=== PATIENT | male | born 1950 | race Caucasian/White ===

== ENCOUNTER 2017-04-20 19:53 | Emergency (ER) | payer OTHER ==
[~2017-04-20] VITALS: Ht 177.8 cm; Wt 72.0 kg
[~2017-04-20 19:53] MED LIST: ALLO100T PO; ASPI-664 PO; ATOR80TA75 PO; CARV6.2579 PO; CHOL400C PO; CLON-339 PO; CLOP75TA27 PO; ISOS60TA PO
[2017-04-20 19:57] VITALS: Ht 177.8 cm; Wt 72.0 kg
--- NOTE | 2017-04-20 21:56 | ERA ---
ER Documentation Chief Complaint Date/Time DATE: 04/20/17 TIME: 21:55 Chief Complaint body weakness, shortness of breath, right arm numbness x 1 week HPI The patient is a 69 male, presenting with chronic headache, chronic neck pain, acute on chronic left-sided chest pain, chronic right arm numbness. However he does not feel well. He denies any new symptoms, denies fever, chills, cough, neck pain, chest pain with exertion or vomiting or diaphoresis. He denies abdominal pain, nausea, vomiting, dysuria, diarrhea. He smokes about half a pack a day, denies drinking Past medical history: Dyslipidemia, hypertension, history of CHF with low EF of 30-35% on the ECHO on November 2015, chronic kidney disease, CAD, history of CVA Past surgical history: None ROS All systems reviewed and are negative except as per history of present illness. Medications Home Meds Active Scripts Allopurinol* (Allopurinol*) 100 Mg Tablet, 100 MG PO BID, #30 TAB Prov:ERWIN MARTINEZ 10/22/16 Reported Medications Bisacodyl* (Bisacodyl*) 5 Mg Tablet.dr, 5 MG PO DAILY, TAB 04/20/17 Amiodarone Hcl* (Amiodarone Hcl*) 200 Mg Tablet, 200 MG PO DAILY, #30 TAB 04/20/17 Clopidogrel Bisulfate (Clopidogrel) 75 Mg Tablet, 75 MG PO DAILY, #30 TAB 10/18/16 Aspirin* (Aspirin* (EC)) 81 Mg Tablet.dr, 81 MG PO DAILY, TAB 10/18/16 Isosorbide Mononitrate* (Isosorbide Mononitrate*) 60 Mg Tab.er.24h, 60 MG PO DAILY, TAB 12/01/15 Carvedilol* (Carvedilol*) 6.25 Mg Tablet, 6.25 MG PO BID, TAB 12/01/15 Atorvastatin* (Atorvastatin*) 80 Mg Tablet, 80 MG PO QHS, #30 TAB 12/01/15 Clonidine HCl (Clonidine HCl ER) 0.1 Mg Tab.er.12h, 0.1 MG PO BID for ELEVATED SYSTOLIC BP, TAB 12/01/15 Ergocalciferol (Vitamin D) 400 Unit Capsule, 400 UNIT PO DAILY, CAP 12/01/15 Allergies Allergies: Coded Allergies: No Known Allergy (Unverified , 11/30/15) PMhx/Soc History of Surgery: Yes Anesthesia Reaction: No Hx Neurological Disorder: No Hx Respiratory Disorders: No Hx Cardiac Disorders: Yes (WV x 3) Hx Psychiatric Problems: No Hx Miscellaneous Medical Probl: No Hx Alcohol Use: No Hx Substance Use: No Hx Tobacco Use: Yes Physical Exam Vitals Vital Signs Date Time Temp Pulse Resp B/P Pulse Ox O2 Delivery O2 Flow Rate FiO2 04/21/17 00:02 91 16 128/94 97 Nasal Cannula 3.0 04/20/17 22:22 86 18 135/96 99 Nasal Cannula 04/20/17 22:12 Nasal Cannula 3 04/20/17 19:57 98.6 92 20 126/73 95 Physical Exam Const: No acute distress. Very anxious Head: Atraumatic. Eyes: Normal Conjunctiva. ENT: Normal External Ears, Nose and Mouth. Neck: Full range of motion. No meningismus. Resp: Clear to auscultation bilaterally. Cardio: Regular rate and rhythm. Abd: Soft, non distended, normal bowel sounds, non tender. Skin: No petechiae or rashes. Back: No midline or flank tenderness. Ext: No cyanosis, or edema. Neur: Awake and alert. No focal deficit Psych: Normal Mood and Affect. Result Diagram: 04/20/17220904/20/172209 Results 24 hrs Laboratory Tests Test 04/20/17 22:10 White Blood Count 8.210^3/ul Red Blood Count 3.7510^6/ul Hemoglobin 8.9g/dl Hematocrit 29.0% Mean Corpuscular Volume 77.3fl Mean Corpuscular Hemoglobin 23.7pg Mean Corpuscular Hemoglobin Concent 30.7g/dl Red Cell Distribution Width 16.6% Platelet Count 23470^3/UL Mean Platelet Volume 9.2fl Neutrophils % 73.1% Lymphocytes % 11.0% Monocytes % 8.7% Eosinophils % 6.1% Basophils % 0.7% Nucleated Red Blood Cells % 0.0/100WBC Neutrophils # 6.010^3/ul Lymphocytes # 0.910^3/ul Monocytes # 0.710^3/ul Eosinophils # 0.510^3/ul Basophils # 0.110^3/ul Nucleated Red Blood Cells # 0.010^3/ul Prothrombin Time 15.6Sec Prothrombin Time Ratio 1.2 INR International Normalized Ratio 1.23 Activated Partial Thromboplast Time 32.0Sec Sodium Level 142mmol/L Potassium Level 5.4mmol/L Chloride Level 109mmol/L Carbon Dioxide Level 18mmol/L Anion Gap 20 Blood Urea Nitrogen 86mg/dl Creatinine 6.12mg/dl Glucose Level 93mg/dl Calcium Level 9.0mg/dl Magnesium Level 2.4mg/dl Troponin I 0.102ng/ml B-Type Natriuretic Peptide 52654KM/ML Current Medications Medications (Trade) Dose Ordered Sig/Aga Route PRN Reason Start Time Stop Time Status Last Admin Dose Admin Aspirin (Aspirin) 81 mg ONCE ONCE PO 04/21/17 00:00 04/21/17 00:07 DC 04/21/17 00:20 Nitroglycerin (Nitroglycerin 2% Oint) 1 inch ONCE ONCE TD 04/21/17 00:00 04/21/17 00:07 DC 04/21/17 00:20 Sodium Polystyrene Sulfonate (Kayexalate) 30 gm ONCE ONCE PO 04/21/17 00:00 04/21/17 00:07 DC 04/21/17 00:20 Albuterol (Proventil 0.083% (Neb)) 5 mg ONCE ONCE HHN 04/21/17 00:07 04/21/17 00:08 DC Procedures/[place] [id number] Radiology Main Line: [phone] DIAGNOSTIC IMAGING REPORT Patient: MIN PUENTE : 1950 Age: 67 Sex: M MR #: [id number] DOS: 04/20/17 2205 Ordering MD: SHARON BURDICK MD Location: E/R Room/Bed: PROCEDURE: XR Chest. CLINICAL INDICATION: Dyspnea. Chest pain. TECHNIQUE: Single frontal view of the chest. COMPARISON: 10/19/2016. FINDINGS: Cardiomegaly. Previously seen volume overload versus failure is resolved. The lungs are clear. No signs of pleural fluid or pneumothorax are seen. The osseous structures and soft tissues are unremarkable. IMPRESSION: No evidence for active cardiopulmonary disease. RPTAT: [facility] Physician Jordon Date Time Electronically viewed and signed by Physician Jordon on 04/20/2017 23:22 RS/ CC: SHARON BURDICK MD [place] [id number] Radiology Main Line: [phone] DIAGNOSTIC IMAGING REPORT Patient: MIN PUENTE : 1950 Age: 67 Sex: M MR #: [id number] DOS: 04/20/17 2224 Ordering MD: SHARON BURDICK MD Location: E/R Room/Bed: PROCEDURE: CT brain without contrast CLINICAL INDICATION: Right hand numbness TECHNIQUE: A CT of the brain was performed utilizing axial sections from the skull base through the vertex without contrast. Sagittal and coronal images were also reformatted. The exam CTDIvol = 89.34 mGy and DLP = 720.23 mGy-cm. COMPARISON: None available FINDINGS: No acute intracranial hemorrhage is identified. There is no mass effect or midline shift. No extra-axial fluid collection is seen. The ventricles and sulci are larger in size and configuration for the patient's provided age of 67 years consistent with advanced generalized atrophy. Encephalomalacia involving the left frontal operculum and insular cortex is compatible with an old infarct in the left middle cerebral artery territory. A small chronic lacunar infarct is also present within the right lentiform nucleus. Low attenuation within the subcortical and periventricular white matter likely reflects chronic small vessel ischemia. Shoemaker-white differentiation is preserved with no findings to suggest an acute ischemic infarct. The fourth ventricle is midline and there is no density alteration within the porfirio or cerebellum. The osseous structures are demineralized but otherwise unremarkable. The mastoid air cells and visualized paranasal sinuses are clear. Atherosclerotic calcification is visualized within the cavernous internal carotid arteries RPTAT:HJJR IMPRESSION: 1.Advanced atrophy for the patient's provided age with encephalomalacia from an old left frontal operculum and insular cortex infarct but no evidence of acute intracranial abnormality or mass effect. 2. Small chronic lacunar infarct in the right lentiform nucleus. 3. Mild scattered chronic small vessel ischemic white matter disease. 4. Cavernous internal carotid artery atherosclerotic calcification. Physician Fantasma Date Time Electronically viewed and signed by Adalberto Waddell Physician on 04/20/2017 22:46 JR/ CC: SHARON BURDICK MD EKG: At 2219 hrs. read by emergency physician Rate/Rhythm: Normal Sinus Rhythm 86 beats/min QRS, ST, T-waves: No ST elevation, no T inversion, PVC, prolonged QT Impression: Abnormal EKG EKG: At 2259 hrs. read by emergency physician Rate/Rhythm: Normal Sinus Rhythm 88 beats/min QRS, ST, T-waves: No ST elevation, no T inversion, PVC, prolonged QT Impression: Abnormal EKG MEDICAL MAKING DECISION: The patient is a 67-year-old male, presenting with acute on chronic chest pain, acute hyperkalemia, acute on chronic kidney disease and possible acute GI bleed. He was treated with aspirin 81 mg p.o. and one is of nitroglycerin ointment to the anterior chest wall for acute chest pain, Kayexalate 30 g p.o. and albuterol 5 mg nebulizer for acute hyperkalemia with good response His creatinine was 4.2, hemoglobin was 10.8 on October 22, 2060 The differential diagnoses for acute chest pain considered include but are not limited to acute coronary syndrome, acute myocardial infarction, pericarditis, pulmonary embolism, aortic dissection, pneumonia, pleural effusion, pneumothorax , GERD, chest wall pain. The differential diagnoses for acute anemia considered include but are not limited to gastritis, peptic ulcer disease, esophageal varices, Janette-Ibarra tear, carcinoma, polyp, hemorrhoid, fissure, diverticulosis, angiodysplasia. Critical Care: Time: 35 minutes excluding all billable procedures. Treatments/Evaluations: Close monitoring and treatment of unstable vital signs, cardiorespiratory, and neurologic status, while maintaining tight balance of fluid, respiratory, and cardiac interventions. Departure Diagnosis: Primary Impression: Chest pain Additional Impressions: Hyperkalemia Acute kidney injury superimposed on chronic kidney disease GI bleed Condition: Stable Comments I discussed the findings with the patient. I discussed the patient with his physician Dr. Zamora who was made aware of the lab, the treatment, the patient condition. The patient transferred to [facility] via ambulance at 1:25 AM SHARON BURDICK MD Apr 20, 2017 21:56
[2017-04-20 22:29] LABS: ADD SCAN DIFF NO
[2017-04-20 22:31] LABS: BASOPHIL # 0.1 10^3/ul (0.0-0.1); BASOPHILS % 0.7 % (0.0-2.0); EOSINOPHILS # 0.5 10^3/ul (0.0-0.5); EOSINOPHILS % 6.1 % (0.0-7.0); HEMOGLOBIN 8.9 g/dl (14.0-18.0); LYMPHOCYTES # 0.9 10^3/ul (0.8-2.9); MEAN CORPUSCULAR HEMOGLOBIN 23.7 pg (29.0-33.0); MEAN CORPUSCULAR HGB CONC 30.7 g/dl (32.0-37.0); MEAN CORPUSCULAR VOLUME 77.3 fl (82.0-101.0); MEAN PLATELET VOLUME 9.2 fl (7.4-10.4); MONOCYTE # 0.7 10^3/ul (0.3-0.9); MONOCYTES % 8.7 % (0.0-11.0); NEUTROPHILS % 73.1 % (39.0-77.0); PLATELET COUNT 275 10^3/UL (140-415); RED BLOOD COUNT 3.75 10^6/ul (4.70-6.10); RED CELL DISTRIBUTION WIDTH 16.6 % (11.5-14.5); WHITE BLOOD COUNT 8.2 10^3/ul (4.8-10.8)
--- NOTE | 2017-04-20 22:47 | RADRPT ---
PROCEDURE: CT brain without contrast CLINICAL INDICATION: Right hand numbness TECHNIQUE: A CT of the brain was performed utilizing axial sections from the skull base through th e vertex without contrast. Sagittal and coronal images were also reformatted. The exam CTDIvol = 89. 34 mGy and DLP = 720.23 mGy-cm. COMPARISON: None available FINDINGS: No acute intracranial hemorrhage is identified. There is no mass effect or midline shift. No extra -axial fluid collection is seen. The ventricles and sulci are larger in size and configuration for the patient's provided age of 67 years consistent with advanced generalized atrophy. Encephalomalac ia involving the left frontal operculum and insular cortex is compatible with an old infarct in the left middle cerebral artery territory. A small chronic lacunar infarct is also present within the r ight lentiform nucleus. Low attenuation within the subcortical and periventricular white matter lik annie reflects chronic small vessel ischemia. Shoemaker-white differentiation is preserved with no finding s to suggest an acute ischemic infarct. The fourth ventricle is midline and there is no density alteration within the porfirio or cerebellum. The osseous structures are demineralized but otherwise unremarkable. The mastoid air cells and visu alized paranasal sinuses are clear. Atherosclerotic calcification is visualized within the cavernous internal carotid arteries RPTAT:HJJR IMPRESSION: 1.Advanced atrophy for the patient's provided age with encephalomalacia from an old left frontal ope rculum and insular cortex infarct but no evidence of acute intracranial abnormality or mass effect. 2. Small chronic lacunar infarct in the right lentiform nucleus. 3. Mild scattered chronic small vessel ischemic white matter disease. 4. Cavernous internal carotid artery atherosclerotic calcification. Physician Fantasma Date Time Electronically viewed and signed by Physician Fantasma on 04/20/2017 22:46 /
[2017-04-20 22:48] LABS: INR 1.23; PROTIME 15.6 Sec (12.2-14.2); PT RATIO 1.2
[2017-04-20 22:51] LABS: CREATININE 6.12 mg/dl (0.61-1.24); POTASSIUM 5.4 mmol/L (3.5-5.1)
[2017-04-20 23:01] LABS: TROPONIN-I 0.102 ng/ml (0.00-0.12)
--- NOTE | 2017-04-20 23:22 | RADRPT ---
PROCEDURE: XR Chest. CLINICAL INDICATION: Dyspnea. Chest pain. TECHNIQUE: Single frontal view of the chest. COMPARISON: 10/19/2016. FINDINGS: Cardiomegaly. Previously seen volume overload versus failure is resolved. The lungs are clear. No signs of pleural fluid or pneumothorax are seen. The osseous structures and soft tissues are unremar kable. IMPRESSION: No evidence for active cardiopulmonary disease. RPTAT: [facility] Physician Jordon Date Time Electronically viewed and signed by Indu Harrington Physician on 04/20/2017 23:22 RS/
[2017-04-20] MEDS ORDERED: AMIO200T2 PO (23:32)
[2017-04-20] MEDS ORDERED: BISA5TAB6 PO (23:32)
[2017-04-21] MEDS ORDERED: NITROGLYCERIN 2% 1 GM OINT PKT TD ONE
[2017-04-21] MEDS ORDERED: ASPIRIN 81 MG TAB PO ONE
[2017-04-21] MEDS ORDERED: NA POLYST SULFON 15 GM/60 ML BTL PO ONE
[2017-04-21] MEDS ORDERED: ALBUTEROL 0.083% (NEB) 2.5 MG/3 ML AMP HHN ONE (00:07)
[2017-04-21 05:50] VITALS: BP 132/77; PULSE 82; RESP 16; TEMP 97.1
== END 2017-04-21 05:52 | disposition short-term general hospital (02) ==
LOC: E/R 19:53
DX: R07.9 Chest pain, unspecified (principal); E87.5 Hyperkalemia; I12.0 Hypertensive chronic kidney disease with stage 5 chronic kidney disease or end stage renal disease; N18.5 Chronic kidney disease, stage 5; N17.9 Acute kidney failure, unspecified; K92.2 Gastrointestinal hemorrhage, unspecified; I50.9 Heart failure, unspecified; I25.10 Atherosclerotic heart disease of native coronary artery without angina pectoris; R93.0 Abnormal findings on diagnostic imaging of skull and head, not elsewhere classified; Z79.82 Long term (current) use of aspirin
CPT/HCPCS: 70450; 71010; 80048; 83735; 83880; 84484; 85025; 85610; 85730; Z7610; 36415; 93005

== ENCOUNTER 2017-06-22 05:32 | Emergency (ER) | payer OTHER ==
[~2017-06-22] VITALS: Ht 172.7 cm; Wt 75.0 kg
[~2017-06-22 05:32] MED LIST changes: +AMIO200T2 PO; +BISA5TAB6 PO
[2017-06-22 05:51] VITALS: Ht 172.7 cm; Wt 75.0 kg
[2017-06-22 06:32] LABS: BASOPHILS % 0.4 % (0.0-2.0); EOSINOPHILS # 0.2 10^3/ul (0.0-0.5); EOSINOPHILS % 3.1 % (0.0-7.0); HEMATOCRIT 27.9 % (42.0-52.0); HEMOGLOBIN 8.3 g/dl (14.0-18.0); LYMPHOCYTES # 0.8 10^3/ul (0.8-2.9); LYMPHOCYTES % 11.1 % (15.0-51.0); MEAN CORPUSCULAR HEMOGLOBIN 22.1 pg (29.0-33.0); MEAN CORPUSCULAR HGB CONC 29.7 g/dl (32.0-37.0); MEAN CORPUSCULAR VOLUME 74.2 fl (82.0-101.0); MEAN PLATELET VOLUME 10.3 fl (7.4-10.4); MONOCYTE # 0.7 10^3/ul (0.3-0.9); MONOCYTES % 9.2 % (0.0-11.0); NEUTROPHIL # 5.3 10^3/ul (1.6-7.5); NEUTROPHILS % 75.9 % (39.0-77.0); PLATELET COUNT 198 10^3/UL (140-415); RED BLOOD COUNT 3.76 10^6/ul (4.70-6.10); RED CELL DISTRIBUTION WIDTH 18.6 % (11.5-14.5)
--- NOTE | 2017-06-22 06:59 | RADRPT ---
PROCEDURE: CHEST - 1 VIEW CLINICAL INDICATION: 67-year-old male with chest pain. TECHNIQUE: A single frontal AP portable view of the chest was performed. The images were reviewed on a PACS workstation. COMPARISON: Chest x-ray April 20, 2017. FINDINGS: The cardiomediastinal silhouette is enlarged but without significant interval change. There is mild pulmonary vascular congestion/volume overload. There is no evidence for consolidation. There is no evidence for pneumothorax. The osseous structures are intact. IMPRESSION: 1. Cardiomegaly. 2. Pulmonary vascular congestion/volume overload. .Tyrese Reveles MD, Date Time Electronically viewed and signed by .Tyrese Reveles MD, on 06/22/2017 06:58 .Olu/
[2017-06-22 07:11] LABS: ALBUMIN/GLOBULIN RATIO 1.11
[2017-06-22] MEDS ORDERED: ONDANSETRON 4 MG INJ IV STA (07:16)
[2017-06-22] MEDS ORDERED: morphine 4 MG/ML VIAL IV STA (07:16)
[2017-06-22 07:24] LABS: BILIRUBIN,INDIRECT 0.2 mg/dl (0-1.1); BILIRUBIN,TOTAL 0.2 mg/dl (0.2-1.3); CALCIUM 8.9 mg/dl (8.4-10.2); CREATININE 6.59 mg/dl (0.61-1.24); POTASSIUM 4.8 mmol/L (3.5-5.1); TOTAL PROTEIN 7.6 g/dl (6.1-8.1)
[2017-06-22 07:26] LABS: TROPONIN-I 0.15 ng/ml (0.00-0.12)
--- NOTE | 2017-06-22 07:41 | RADRPT ---
PROCEDURE: CT abdomen and pelvis without contrast. CLINICAL INDICATION: Abdominal pain. TECHNIQUE: CT scan of the abdomen and pelvis without contrast was performed on a multi-slice CT [facility] . Sagittal and coronal reformatted images were obtained from the axial source images. One or more of the following dose reduction techniques were used: - Automated exposure control. - Adjustment of the mA and/or kV according to patient size. - Use of iterative reconstruction technique. DLP 498.2 mGycm. CTDIvol 9.4 mGy COMPARISON: None FINDINGS: There is limited evaluation of the solid viscera of the lack of IV contrast. There are bilateral trace layering effusions which cause compressive mild atelectasis of the lower l ungs bilaterally. Septal thickening and mild ground-glass is seen within the aerated lower lungs wh ich also demonstrate mosaic attenuation. There is moderate cardiomegaly with aortic and coronary artery atherosclerotic calcification. There is generalized anasarca of the soft tissues of the abdomen and pelvis. There is mild intra-ab dominal ascites present. There is borderline hepatomegaly with no gross evidence of focal lesion. There is no biliary duct al dilatation. The gallbladder is unremarkable without inflammation. The spleen is normal in size and homogeneous in density. The pancreas is within normal limits witho ut focal lesion or surrounding inflammation. The adrenal glands are symmetric and normal. The right kidney is moderately atrophic in the left kidney is mildly atrophic and there are multiple bilateral fluid density structures likely cysts present. No renal or ureteral calculi are present and there is no hydronephrosis of the kidneys bilaterally with no visible inflammatory changes.. The aorta is of normal caliber. Aortic vascular calcifications are present. There are numerous nonenlarged lymph nodes scattered throughout the retroperitoneal fat no enlarged lymph nodes present within the abdomen and pelvis. There is no bowel obstruction. There is a moderately diffusely fecal filled colon. There is no lyssa e air. There is diverticulosis without diverticulitis. The appendix is not seen. Degenerative changes are seen in the lumbar spine with no acute osseous abnormality. Prostate is borderline enlarged. IMPRESSION: Findings are consistent with volume overload with pulmonary edema and trace bilateral pleural effusi ons. There is moderate cardiomegaly with atherosclerotic disease. Anasarca findings are present throughout the abdomen and pelvis. There is mild ascites. There is a fecal filled colon. There is no evidence of bowel obstruction or visible focal bowel infl ammation. Appendix is not seen. There is bilateral renal atrophy more pronounced on the right with multiple bilateral renal cysts. Numerous nonenlarged lymph nodes are scattered in the retroperitoneum which are indeterminate signif icance and may be reactive in nature. A followup CT abdomen and pelvis can be performed after 6 mon ths to reevaluate. Mild hepatomegaly. RPTAT: AA .Kp Lynch MD, Date Time Electronically viewed and signed by .Kp Lynch MD, on 06/22/2017 07:41 .J/
[2017-06-22] MEDS ORDERED: FUROSEMIDE 40 MG INJ IV ONE (08:00)
[2017-06-22] MEDS ORDERED: ENOXAPARIN 80 MG/0.8 ML SYG SC SCH (08:00)
--- NOTE | 2017-06-22 08:31 | ERA ---
ER Documentation Chief Complaint Date/Time DATE: 06/22/17 TIME: 08:26 Chief Complaint c/o abd pain radiating to left chest,body aches,SOB HPI 67-year-old male with a history of renal failure who is here because over the past week he is gradually getting more short of breath with exertion and orthopnea. Is also complaining of constipation and diffuse abdominal bloating and discomfort but no vomiting fever no chest pain no cough. Patient's baseline creatinine is around 6.0. He is denying any lower extremity swelling. The patient is not on hemodialysis currently. ROS All systems reviewed and are negative except as per history of present illness. Medications Home Meds Active Scripts Allopurinol* (Allopurinol*) 100 Mg Tablet, 100 MG PO BID, #30 TAB Prov:ERWIN MARTINEZ 10/22/16 Reported Medications Bisacodyl* (Bisacodyl*) 5 Mg Tablet.dr, 5 MG PO DAILY, TAB 04/20/17 Amiodarone Hcl* (Amiodarone Hcl*) 200 Mg Tablet, 200 MG PO DAILY, #30 TAB 04/20/17 Clopidogrel Bisulfate (Clopidogrel) 75 Mg Tablet, 75 MG PO DAILY, #30 TAB 10/18/16 Aspirin* (Aspirin* (EC)) 81 Mg Tablet.dr, 81 MG PO DAILY, TAB 10/18/16 Isosorbide Mononitrate* (Isosorbide Mononitrate*) 60 Mg Tab.er.24h, 60 MG PO DAILY, TAB 12/01/15 Carvedilol* (Carvedilol*) 6.25 Mg Tablet, 6.25 MG PO BID, TAB 12/01/15 Atorvastatin* (Atorvastatin*) 80 Mg Tablet, 80 MG PO QHS, #30 TAB 12/01/15 Clonidine HCl (Clonidine HCl ER) 0.1 Mg Tab.er.12h, 0.1 MG PO BID for ELEVATED SYSTOLIC BP, TAB 12/01/15 Ergocalciferol (Vitamin D) 400 Unit Capsule, 400 UNIT PO DAILY, CAP 12/01/15 Allergies Allergies: Coded Allergies: No Known Allergy (Unverified , 06/22/17) PMhx/Soc History of Surgery: Yes Anesthesia Reaction: No Hx Neurological Disorder: No Hx Respiratory Disorders: No Hx Cardiac Disorders: Yes (CO x 3) Hx Psychiatric Problems: No Hx Miscellaneous Medical Probl: No Hx Alcohol Use: No Hx Substance Use: No Hx Tobacco Use: Yes Smoking Status: Current every day smoker FmHx Family History: No coronary disease Physical Exam Vitals Vital Signs Date Time Temp Pulse Resp B/P Pulse Ox O2 Delivery O2 Flow Rate FiO2 06/22/17 06:20 98.5 84 18 141/101 95 Room Air 06/22/17 05:51 97.3 80 18 134/78 95 Physical Exam Const: [] Head: Atraumatic normocephalic Eyes: Normal Conjunctiva, PERRLA ENT: Normal External Ears, Nose and Mouth. Neck: Full range of motion..~ No meningismus. Resp: Mild diffuse scattered rhonchi no increased work of breathing Cardio: Regular rate and rhythm, no murmurs Abd: Soft, mild diffuse tenderness, non distended. Normal bowel sounds Skin: No petechiae or rashes Back: No midline or flank tenderness Ext: No cyanosis, or edema Neur: Awake and alert Psych: Normal Mood and Affect Result Diagram: 06/22/1715 06/22/17 0615 Results 24 hrs Laboratory Tests Test 06/22/17 06:15 White Blood Count 7.010^3/ul Red Blood Count 3.7610^6/ul Hemoglobin 8.3g/dl Hematocrit 27.9% Mean Corpuscular Volume 74.2fl Mean Corpuscular Hemoglobin 22.1pg Mean Corpuscular Hemoglobin Concent 29.7g/dl Red Cell Distribution Width 18.6% Platelet Count 90908^3/UL Mean Platelet Volume 10.3fl Neutrophils % 75.9% Lymphocytes % 11.1% Monocytes % 9.2% Eosinophils % 3.1% Basophils % 0.4% Nucleated Red Blood Cells % 0.0/100WBC Neutrophils # 5.310^3/ul Lymphocytes # 0.810^3/ul Monocytes # 0.710^3/ul Eosinophils # 0.210^3/ul Basophils # 0.010^3/ul Nucleated Red Blood Cells # 0.010^3/ul Sodium Level 144mmol/L Potassium Level 4.8mmol/L Chloride Level 102mmol/L Carbon Dioxide Level 21mmol/L Anion Gap 26 Blood Urea Nitrogen 104mg/dl Creatinine 6.59mg/dl Glucose Level 104mg/dl Calcium Level 8.9mg/dl Total Bilirubin 0.2mg/dl Direct Bilirubin 0.00mg/dl Indirect Bilirubin 0.2mg/dl Aspartate Amino Transf (AST/SGOT) 25IU/L Alanine Aminotransferase (ALT/SGPT) 32IU/L Alkaline Phosphatase 98IU/L Troponin I 0.150ng/ml B-Type Natriuretic Peptide 34686BE/ML Total Protein 7.6g/dl Albumin 4.0g/dl Globulin 3.60g/dl Albumin/Globulin Ratio 1.11 Current Medications Medications (Trade) Dose Ordered Sig/Aga Route PRN Reason Start Time Stop Time Status Last Admin Dose Admin Morphine Sulfate (morphine) 4 mg ONCE STAT IV 06/22/17 07:16 06/22/17 07:17 DC 06/22/17 07:30 Ondansetron HCl (Zofran Inj) 4 mg ONCE STAT IV 06/22/17 07:16 06/22/17 07:17 DC 06/22/17 07:29 Furosemide (Lasix) 60 mg ONCE ONCE IV 06/22/17 08:00 06/22/17 08:01 DC 06/22/17 08:02 Enoxaparin Sodium (Lovenox) 80 mg ONCE SC 06/22/17 08:00 06/22/17 08:15 Procedures/MDM PROCEDURE: CT abdomen and pelvis without contrast. CLINICAL INDICATION: Abdominal pain. TECHNIQUE: CT scan of the abdomen and pelvis without contrast was performed on a multi-slice CT scanner . Sagittal and coronal reformatted images were obtained from the axial source images. One or more of the following dose reduction techniques were used: - Automated exposure control. - Adjustment of the mA and/or kV according to patient size. - Use of iterative reconstruction technique. DLP 498.2 mGycm. CTDIvol 9.4 mGy COMPARISON: None FINDINGS: There is limited evaluation of the solid viscera of the lack of IV contrast. There are bilateral trace layering effusions which cause compressive mild atelectasis of the lower lungs bilaterally. Septal thickening and mild ground- glass is seen within the aerated lower lungs which also demonstrate mosaic attenuation. There is moderate cardiomegaly with aortic and coronary artery atherosclerotic calcification. There is generalized anasarca of the soft tissues of the abdomen and pelvis. There is mild intra-abdominal ascites present. There is borderline hepatomegaly with no gross evidence of focal lesion. There is no biliary ductal dilatation. The gallbladder is unremarkable without inflammation. The spleen is normal in size and homogeneous in density. The pancreas is within normal limits without focal lesion or surrounding inflammation. The adrenal glands are symmetric and normal. The right kidney is moderately atrophic in the left kidney is mildly atrophic and there are multiple bilateral fluid density structures likely cysts present. No renal or ureteral calculi are present and there is no hydronephrosis of the kidneys bilaterally with no visible inflammatory changes.. The aorta is of normal caliber. Aortic vascular calcifications are present. There are numerous nonenlarged lymph nodes scattered throughout the retroperitoneal fat no enlarged lymph nodes present within the abdomen and pelvis. There is no bowel obstruction. There is a moderately diffusely fecal filled colon. There is no free air. There is diverticulosis without diverticulitis. The appendix is not seen. Degenerative changes are seen in the lumbar spine with no acute osseous abnormality. Prostate is borderline enlarged. IMPRESSION: Findings are consistent with volume overload with pulmonary edema and trace bilateral pleural effusions. There is moderate cardiomegaly with atherosclerotic disease. Anasarca findings are present throughout the abdomen and pelvis. There is mild ascites. There is a fecal filled colon. There is no evidence of bowel obstruction or visible focal bowel inflammation. Appendix is not seen. There is bilateral renal atrophy more pronounced on the right with multiple bilateral renal cysts. Numerous nonenlarged lymph nodes are scattered in the retroperitoneum which are indeterminate significance and may be reactive in nature. A followup CT abdomen and pelvis can be performed after 6 months to reevaluate. Mild hepatomegaly. RPTAT: AA .Kp Lynch MD, Date Time Electronically viewed and signed by .Kp Lynch MD, MD on 06/22/2017 07:41 .J/ CC: GENNA TRONCOSO DO PROCEDURE: CHEST - 1 VIEW CLINICAL INDICATION: 67-year-old male with chest pain. TECHNIQUE: A single frontal AP portable view of the chest was performed. The images were reviewed on a PACS workstation. COMPARISON: Chest x-ray April 20, 2017. FINDINGS: The cardiomediastinal silhouette is enlarged but without significant interval change. There is mild pulmonary vascular congestion/volume overload. There is no evidence for consolidation. There is no evidence for pneumothorax. The osseous structures are intact. IMPRESSION: 1. Cardiomegaly. 2. Pulmonary vascular congestion/volume overload. .Tyrese Reveles MD, MD Date Time Electronically viewed and signed by .Tyrese Reveles MD, MD on 06/22/2017 06:58 .M/ CC: GENNA TRONCOSO DO EKG interpreted by me: Normal sinus rhythm with premature supraventricular complexes, normal VA, QRS, QT Abnormal EKG Patient has elevated troponin this is likely due to lack of renal clearance because it is just slightly elevated. Did treat him with Lovenox in case it is cardiac. However I doubt it is. He is given Lasix to attempt diuresis but he will need to be admitted for diuresis and needs to start hemodialysis. Patient's exhibiting signs of worsening renal failure with subsequent pulmonary edema his inability to clear the edema with urine output will necessitate him going on dialysis. [facility]oke with [facility] and will transfer is in stable condition Departure Diagnosis: Primary Impression: Acute renal failure Qualified Code: N17.9 - Acute renal failure, unspecified acute renal failure type Additional Impression: Pulmonary edema Qualified Code: J81.0 - Acute pulmonary edema Condition: Stable GENNA TRONCOSO DO Jun 22, 2017 08:31
[2017-06-22 11:35] VITALS: BP 137/78; PULSE 83; RESP 20; TEMP 98.4
== END 2017-06-22 12:05 | disposition short-term general hospital (02) ==
LOC: E/R 05:32
DX: N17.9 Acute kidney failure, unspecified (principal); J81.0 Acute pulmonary edema; F17.210 Nicotine dependence, cigarettes, uncomplicated; R06.02 Shortness of breath; Z79.82 Long term (current) use of aspirin
CPT/HCPCS: 36415; 71010; 74176; 80053; 83880; 84484; 85025; 93005; 96372; 96374; 96375; J1650; J1940; J2270; J2405; Z7502